=== PATIENT | female | born 1980 | race Caucasian/White ===

== ENCOUNTER 2018-07-20 01:50 | Emergency (ER) | payer BC ==
[~2018-07-20] VITALS: Ht 167.6 cm; Wt 60.0 kg
--- OUTSIDE RECORDS SUMMARY | ~2018-07-20 | XMS ---
Demographics + + + | Address | [address] | | | [place] [address] | + + + | Preferred Language | Unknown | + + + | Marital Status | Unknown | + + + | Islam Affiliation | Unknown | + + + | Race | Unknown | + + + | Ethnic Group | Unknown | + + + Author + + + | Author | [facility] | + + + | Organization | [facility] | + + + | Address | [address] | | | [place] [address] | + + + | Phone | | + + + Care Team Providers + + + + | Care Fresh Foods Cake Decorator Name | Role | Phone | + + + + Unavailable | Unavailable | + + + + PROBLEMS + + + + + + + + | Type | Condition | ICD9-CM | MND50-OH | Onset | Condition | SNOMED | | | | Code | Code | Dates | Status | Code | + + + + + + + + | Problem | Rash | 782.1 | | | Active | 300490514 | + + + + + + + + | Problem | Elevated | 796.2 | | | Active | [id number] | | | blood | | | | | | | | pressure | | | | | | | | reading | | | | | | | | without | | | | | | | | diagnosis | | | | | | | | of | | | | | | | | hypertensi | | | | | | | | on | | | | | | + + + + + + + + | Problem | Tinea | 110.9 | | | Active | 52912907 | + + + + + + + + | Assessment | Screening | | Z13.220 | 27 Apr, | Active | 900286338 | | | cholestero | | | 2017 | | | | | l level | | | | | | + + + + + + + + | Assessment | Encounter | | Z13.89 | Jul, | Active | [id number] | | | for | | | 2016 | | | | | screening | | | | | | | | for other | | | | | | | | disorder | | | | | | + + + + + + + + | Assessment | Anxiety | F41.8 | | 27 Jul, | Active | [id number] | | | with | | | 2016 | | | | | depression | | | | | | + + + + + + + + | Problem | Anxiety | F41.8 | | | Active | 580406810 | | | with | | | | | | | | depression | | | | | | + + + + + + + + | Problem | Lymphadeno | | R59.0 | | Active | 10945913 | | | ibrahima, | | | | | | | | cervical | | | | | | + + + + + + + + | Problem | ARTHRITIS | 716.90 | | | Active | 514482510 | | | UNSPECIFIE | | | | | | | | D | | | | | | + + + + + + + + | Problem | Depressive | 296.00 | | | Active | 92400085 | | | disorder | | | | | | | | NOS | | | | | | + + + + + + + + | Problem | 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 | | | Active | 1399744 | | | l disease | | | | | | + + + + + + + + | Problem | Marijuana | F12.10 | | | Active | 35429551 | | | use | | | | | | + + + + + + + + ALLERGIES + + + + +--------+ | Substance | Reaction | Event Type | Date | Status | + + + + +--------+ | Amoxicillin | SOB/RAPID HEART | Drug Allergy | Jul, | Active | | | RATE | | | | + + + + +--------+ SOCIAL HISTORY No smoking Hx information available PLAN OF CARE + +---------+ | Activity | Details | + +---------+ +---+ | | +---+ + + + | Pending Test | TSH | + + + | Pending Test | Lipid Panel | + + + | | prn,Reason: | + + + VITAL SIGNS + + + + | Height | 65 in | 2016-08-03 | + + + + | Weight | 131.4 lbs | 2016-08-03 | + + + + | BMI | 21.86 kg/m2 | 2016-08-03 | + + + + | Temperature | 98.5 degrees Fahrenheit | 2016-08-03 | + + + + | Heart Rate | 66 /min | 2016-08-03 | + + + + | Blood pressure systolic | 130 mm Hg | 2016-08-03 | + + + + | Blood pressure diastolic | 68 mm Hg | 2016-08-03 | + + + + MEDICATIONS + + + + +--------+ + +--------+ | Medicati | Instruct | Dosage | Frequenc | Start | End Date | Duration | Status | | on | ions | | y | Date | | | | + + + + +--------+ + +--------+ | Benadryl | Orally | 1 tablet | 8h | | | | Active | | Allergy | every 8 | as | | | | | | | 25 MG | hrs | needed | | | | | | + + + + +--------+ + +--------+ | Albutero | Inhalati | 1 puff | 4h | | | | Active | | l | on every | as | | | | | | | Sulfate | 4 hrs | needed | | | | | | | 108 (90 | | | | | | | | | Base) | | | | | | | | | MCG/ACT | | | | | | | | + + + + +--------+ + +--------+ RESULTS No Results PROCEDURES + + + + + | Procedure | Date Ordered | Related Diagnosis | Body Site | + + + + + | Est Level IV | August 03, 2016 | | | | Extended | | | | + + + + + | DSCHRG MED/CURRENT | August 03, 2016 | | | | MED MERGE | | | | + + + + + | CLIN DEPRESSION | August 03, 2016 | | | | SCREEN DOC | | | | + + + + + | DOC MEDS VERIFIED | August 03, 2016 | | | | W/PT OR RE | | | | + + + + + IMMUNIZATIONS No Known Immunizations"
[~2018-07-20 01:50] MED LIST: AMOXICILLIN500 MG PO; AMOXICILLIN875 MG PO; AZITHROMYCIN250 MG PO; BENADRYL ALLERG25 MG PO; IBUPROFEN800 MG PO; PREDNISONE1 MG PO; PREDNISONE20 MG PO; PROVENTIL HFA6.7 GM INH; TYLENOL325 MG PO
--- OUTSIDE RECORDS SUMMARY | 2018-07-20 01:52 | XMS ---
PreManage Notification: GHULAM DENNIS Security Prevocational/Rehabilitation Counselor Events No recent Security Events currently on file CRITERIA MET - Group Notification CARE PROVIDERS CORDELIA RAMIREZ Nurse Practitioner: Family Current PHONE: Unknown CORDELIA PAUL [facility] 04/09/2016-Kristel RAMIREZ PHONE: Unknown Sarika has no Care Guidelines for this patient. Sree VISIT COUNT (12 MO.) Maninder Paul TOTAL 1 NOTE: Visits indicate total known visits. ED/UCC VISIT TRACKING (12 MO.) 07/20/2018 01:50 [facility] [place] TYPE: Emergency COMPLAINT: - DENTAL PAIN INPATIENT VISIT TRACKING (12 MO.) No inpatient visits to display in this time frame [email or web address]
[2018-07-20] MEDS ORDERED: TRAMADOL HCL50 MG PO (02:12)
[2018-07-20] MEDS ORDERED: CEPHALEXIN500 MG PO (02:12)
== END 2018-07-20 02:27 | disposition home or self-care (01) ==
LOC: ED 01:50
DX: K08.89 Other specified disorders of teeth and supporting structures (principal); Z87.891 Personal history of nicotine dependence; Z88.0 Allergy status to penicillin
CPT/HCPCS: 99282

== ENCOUNTER 2018-07-20 13:44 | Emergency (ER) | payer BC ==
[~2018-07-20] VITALS: Ht 167.6 cm; Wt 60.0 kg
[~2018-07-20 13:44] MED LIST changes: +CEPHALEXIN500 MG PO; +TRAMADOL HCL50 MG PO
--- OUTSIDE RECORDS SUMMARY | 2018-07-20 13:46 | XMS ---
PreManage Notification: GHULAM DENNIS Security Deaf/Hard Of Hearing Specialist Events No recent Security Events currently on file CRITERIA MET - Group Notification - [facility] - 2 Visits in 30 Days CARE PROVIDERS CORDELIA RAMIREZ Nurse Practitioner: Family Current PHONE: Unknown CORDELIA PAUL Primary [facility] 04/09/2016-Kristel RAMIREZ PHONE: Unknown Sarika has no Care Guidelines for this patient. Sree VISIT COUNT (12 MO.) 2 [facility] TOTAL 2 NOTE: Visits indicate total known visits. ED/UCC VISIT TRACKING (12 MO.) 07/20/2018 13:44 [facility] [place] TYPE: Emergency COMPLAINT: - MEDICATION REACTION 07/20/2018 01:50 [facility] [place] TYPE: Emergency COMPLAINT: - DENTAL PAIN INPATIENT VISIT TRACKING (12 MO.) No inpatient visits to display in this time frame [id number]
== END 2018-07-20 16:25 | disposition home or self-care (01) ==
LOC: ED 13:44
DX: K08.89 Other specified disorders of teeth and supporting structures (principal); Z76.5 Malingerer [conscious simulation]; F31.9 Bipolar disorder, unspecified; Z87.891 Personal history of nicotine dependence; Z88.0 Allergy status to penicillin; Z79.899 Other long term (current) drug therapy
CPT/HCPCS: 99282

== ENCOUNTER 2018-08-16 12:37 | Emergency (ER) | payer BC ==
[~2018-08-16] VITALS: Ht 167.6 cm; Wt 60.0 kg
--- OUTSIDE RECORDS SUMMARY | 2018-08-16 12:40 | XMS ---
PreManage Notification: GHULAM DENNIS Security Client Service Manager Events No recent Security Events currently on file CRITERIA MET - Group Notification - [facility] - Has Care Guidelines - [facility] - 2 Visits in 30 Days CARE PROVIDERS CORDELIA RAMIREZ Nurse Practitioner: Family Current PHONE: Unknown CORDELIA PAUL Primary Care 04/09/2016-Current ASHLEY PHONE: Unknown Sarika has no Care Guidelines for this patient. Care History Medical/Surgical 07/22/2018 [facility] - Patient is currently established with [facility]. If patient is seen in the ED during business hours. Please contact CHWs at [facility]. Care Recommendation: This patient has had 5 or more Emergency Department visits in the last 12 months.\T\nbsp; Patient requires education on the scope and purpose of the ED as an acute care provider not a Primary Care Provider and should not be utilized for chronic conditions.\T\nbsp; These are guidelines and the provider should exercise clinical judgment when providing care. E.D. VISIT COUNT (12 MO.) 3 [facility] TOTAL 3 NOTE: Visits indicate total known visits. ED/UCC VISIT TRACKING (12 MO.) 08/16/2018 12:37 [facility] [place] TYPE: Emergency COMPLAINT: - ABD PAIN 07/20/2018 13:44 [facility] [place] TYPE: Emergency COMPLAINT: - MEDICATION REACTION DIAGNOSES: - Bipolar disorder, unspecified - Malingerer [conscious simulation] - Other intermediate card tender (current) drug therapy - Allergy status to penicillin - Personal history of nicotine dependence - Other specified disorders of teeth and supporting structures 07/20/2018 01:[address] [facility] [place] TYPE: Emergency COMPLAINT: - DENTAL PAIN DIAGNOSES: - Allergy status to penicillin - Personal history of nicotine dependence - Other specified disorders of teeth and supporting structures INPATIENT VISIT TRACKING (12 MO.) No inpatient visits to display in this time frame [email or web address]
[2018-08-16] MEDS ORDERED: OMEPRAZOLE20 MG PO (12:56)
== END 2018-08-16 15:55 | disposition home or self-care (01) ==
LOC: ED 12:37
DX: R10.11 Right upper quadrant pain (principal); Z88.1 Allergy status to other antibiotic agents; Z88.6 Allergy status to analgesic agent; Z79.899 Other long term (current) drug therapy
CPT/HCPCS: 76705; 80053; 83690; 85025; 96361; 96374; 96375; 99284-25; J1170; J2765; J7030

== ENCOUNTER 2020-01-30 19:10 | Emergency (ER) | payer OTHER ==
[~2020-01-30] VITALS: Ht 167.6 cm; Wt 65.9 kg
[~2020-01-30 19:10] MED LIST changes: +CEFUROXIME250 MG PO; +OMEPRAZOLE20 MG PO; +PYRIDIUM100 MG PO
--- NOTE | 2020-01-31 17:45 | EKG ---
[facility] [address] [facility] [place], [place] [address] Signed Normal sinus rhythm Normal ECG No previous ECGs available Confirmed by SAGAR DYSON MD ([id number]) on 01/31/2020 5:45:39 PM Electronically Signed By: SAGAR DYSON MD 01/31/20 1745 PATIENT NAME: GHULAM DENNIS Electrocardiogram DATE OF : 82 PHYSICIAN: SAGAR DYSON MD REPORT #: [id number] REPORT IS CONFIDENTIAL AND NOT TO BE RELEASED WITHOUT AUTHORIZATION
== END 2020-01-30 21:02 | disposition home or self-care (01) ==
LOC: ED 19:10
DX: R07.89 Other chest pain (principal); R53.81 Other malaise; R11.10 Vomiting, unspecified; R19.7 Diarrhea, unspecified; F17.200 Nicotine dependence, unspecified, uncomplicated; Z88.5 Allergy status to narcotic agent; Z88.0 Allergy status to penicillin
CPT/HCPCS: 71045; 80053; 81001; 83690; 83735; 84484; 84703; 85025; 93005; 93010; 96361; 96374; 99285-25; J2405; J7030

== ENCOUNTER 2020-03-24 13:05 | Emergency (ER) | payer OTHER ==
[~2020-03-24] VITALS: Ht 167.6 cm; Wt 63.7 kg
[2020-03-24] MEDS ORDERED: NORCO 7.5-3251 EACH PO (18:54)
== END 2020-03-24 19:09 | disposition home or self-care (01) ==
LOC: ED 13:05
DX: S62.102A Fracture of unspecified carpal bone, left wrist, initial encounter for closed fracture (principal); F17.200 Nicotine dependence, unspecified, uncomplicated; W18.30XA Fall on same level, unspecified, initial encounter; Z88.5 Allergy status to narcotic agent; Z88.0 Allergy status to penicillin
CPT/HCPCS: 73110; 99283-25; A9270

== ENCOUNTER 2020-08-31 12:21 | Emergency (ER) | payer OTHER ==
[~2020-08-31] VITALS: Ht 167.6 cm; Wt 71.8 kg
[~2020-08-31 12:21] MED LIST changes: +NORCO 7.5-3251 EACH PO
[2020-08-31] MEDS ORDERED: DICLOFENAC SODI75 MG PO (13:00)
== END 2020-08-31 15:01 | disposition home or self-care (01) ==
LOC: ED 12:21
DX: S80.11XA Contusion of right lower leg, initial encounter (principal); X58.XXXA Exposure to other specified factors, initial encounter; F17.200 Nicotine dependence, unspecified, uncomplicated; Z88.5 Allergy status to narcotic agent; Z88.0 Allergy status to penicillin; Z79.899 Other long term (current) drug therapy
CPT/HCPCS: 93971; 99283-25

== ENCOUNTER 2021-05-29 16:27 | Emergency (ER) | payer OTHER ==
[~2021-05-29] VITALS: Ht 167.6 cm; Wt 63.7 kg
[~2021-05-29 16:27] MED LIST changes: +DICLOFENAC SODI75 MG PO
--- NOTE | 2021-05-31 13:43 | EKG ---
[facility] [address] [facility] [place] [address] elevation, consider inferolateral injury or acute infarct ACUTE UT / STEMI Abnormal ECG No previous ECGs available Confirmed by MARCELINO MAXWELL MD ([id number]) on 05/31/2021 1:43:10 PM Electronically Signed By: MARCELINO MAXWELL MD 05/31/21 1343 PATIENT NAME: JEANNIEGHULAMVICK CANODARY Electrocardiogram DATE OF : 82 PHYSICIAN: MARCELINO MAXWELL MD REPORT #: [id number] REPORT IS CONFIDENTIAL AND NOT TO BE RELEASED WITHOUT AUTHORIZATION
--- NOTE | 2021-05-31 13:47 | EKG ---
[facility] [address] [facility] [place], [place] [address] Signed Normal sinus rhythm ACUTE IN ST elevation, consider inferolateral injury or acute infarct Confirmed by MARCELINO MAXWELL MD ([id number]) on 05/31/2021 1:46:42 PM Electronically Signed By: MARCELINO MAXWELL MD 05/31/21 1347 PATIENT NAME: GHULAM DENNIS Electrocardiogram DATE OF : [birth year] PHYSICIAN: MARCELINO MAXWELL MD REPORT #: [id number] REPORT IS CONFIDENTIAL AND NOT TO BE RELEASED WITHOUT AUTHORIZATION
== END 2021-05-29 17:57 | disposition short-term general hospital (02) ==
LOC: ED 16:27
DX: I21.3 ST elevation (STEMI) myocardial infarction of unspecified site (principal); F17.200 Nicotine dependence, unspecified, uncomplicated; Z20.822 Contact with and (suspected) exposure to COVID-19; Z88.5 Allergy status to narcotic agent; Z88.0 Allergy status to penicillin
CPT/HCPCS: 71045; 80053; 80503; 84484; 85025; 85610; 85730; 93005; 93010; 96374; 96375; 99285-25; C9803; J1644; U0003

== ENCOUNTER 2021-08-14 17:28 | Emergency (ER) | payer OTHER ==
[~2021-08-14] VITALS: Ht 167.6 cm; Wt 63.7 kg
[2021-08-14] MEDS ORDERED: FEOSOL325 MG PO (20:05)
--- NOTE | 2021-08-15 14:07 | EKG ---
[facility] [address] [facility] [place], [place] [address] Signed Normal sinus rhythm Normal ECG No previous ECGs available Confirmed by MARCELINO MAXWELL MD ([id number]) on 08/15/2021 2:07:33 PM Electronically Signed By: MARCELINO MAXWELL MD 08/15/21 1407 PATIENT NAME: GHULAM DENNIS Electrocardiogram DATE OF : [birth year] PHYSICIAN: MARCELINO MAXWELL MD REPORT #: [id number] REPORT IS CONFIDENTIAL AND NOT TO BE RELEASED WITHOUT AUTHORIZATION
== END 2021-08-14 20:17 | disposition home or self-care (01) ==
LOC: ED 17:28
DX: R07.89 Other chest pain (principal); F17.200 Nicotine dependence, unspecified, uncomplicated; Z88.8 Allergy status to other drugs, medicaments and biological substances; Z88.0 Allergy status to penicillin
CPT/HCPCS: 36415; 71045; 80053; 83735; 84484; 85025; 85060; 85379; 93005; 93010; 99285-25

== ENCOUNTER 2022-02-18 15:59 | Emergency (ER) | payer OTHER ==
[~2022-02-18] VITALS: Ht 167.6 cm; Wt 63.7 kg
[~2022-02-18 15:59] MED LIST changes: +FEOSOL325 MG PO
[2022-02-18] MEDS ORDERED: CLOPIDOGREL75 MG PO (16:10)
[2022-02-18] MEDS ORDERED: METOPROLOL SUCC25 MG PO (16:11)
[2022-02-18] MEDS ORDERED: ATORVASTATIN CA80 MG PO (16:11)
--- NOTE | 2022-02-19 07:34 | EKG ---
[facility] [address] [facility] [place], [place] [address] Signed Normal sinus rhythm Normal ECG No previous ECGs available Confirmed by SAGAR DYSON MD ([id number]) on 02/19/2022 7:33:58 AM Electronically Signed By: SAGAR DYSON MD 02/19/22 0734 PATIENT NAME: GHULAM DENNIS Electrocardiogram DATE OF : [birth year] PHYSICIAN: SAGAR DYSON MD REPORT #: [id number] REPORT IS CONFIDENTIAL AND NOT TO BE RELEASED WITHOUT AUTHORIZATION
== END 2022-02-18 20:15 | disposition home or self-care (01) ==
LOC: ED 15:59
DX: R07.89 Other chest pain (principal); I25.2 Old myocardial infarction; Z87.440 Personal history of urinary (tract) infections; F17.200 Nicotine dependence, unspecified, uncomplicated; Z88.0 Allergy status to penicillin; Z88.5 Allergy status to narcotic agent; Z79.899 Other long term (current) drug therapy
CPT/HCPCS: 36415; 71045; 80053; 83735; 84484; 85025; 85060; 93005; 93010; 99285-25; A9270

== ENCOUNTER 2022-12-08 17:28 | Emergency (ER) | payer OTHER ==
[~2022-12-08] VITALS: Ht 167.6 cm; Wt 79.4 kg
--- OUTSIDE RECORDS SUMMARY | ~2022-12-08 | XMS | Continuity of Care Document ---
Demographics + + + | Address | [address] | | | [place] [address] | + + + | Preferred Language | Unknown | + + + | Marital Status | | + + + | Alevism Affiliation | Unknown | + + + | Race | White | + + + | Ethnic Group | Not or | + + + Author + + + | Author | [facility] | + + + | Organization | [facility] | + + + | Address | [address] | | | [place] [address] | + + + | Phone | | + + + Care Team Providers + + + + | Care Customer Solutions Coordinator Name | Role | Phone | + + + + Unavailable | Unavailable | + + + + Allergies and Intolerances + + + + + + | date | description | facility | reaction | severity | + + + + + + | (no date) | amoxicillin | [facility] | (no reaction) | (no severity) | + + + + + + | (no date) | tramadol | [facility] | (no reaction) | (no severity) | + + + + + + Encounters No information. Functional Status No information. Immunizations No information. Medications No information. Problems + + + + | date | description | facility | + + + + | 2022-11-27 14:49 | NICOTINE DEPENDENCE, | [facility] | | | UNSPECIFIED, UNCOMPLICATED | | + + + + | 2022-11-27 14:49 | OLD MYOCARDIAL INFARCTION | [facility] | + + + + | 2022-11-27 14:49 | CEREBRAL INFARCTION, | [facility] | | | UNSPECIFIED | | + + + + | 2022-11-27 14:49 | FACIAL WEAKNESS | [facility] | + + + + | 2022-11-27 14:49 | OTHER MOISTURE CONDITIONER OPERATOR (CURRENT) | [facility] | | | DRUG THERAPY | | + + + + | 2022-11-27 14:49 | ALLERGY STATUS TO | [facility] | | | PENICILLIN | | + + + + | 2022-11-27 14:49 | ALLERGY STATUS TO NARCOTIC | [facility] | | | AGENT STATUS | | + + + + | 2022-11-27 14:49 | PRESENCE OF CORONARY | [facility] | | | ANGIOPLASTY IMPLANT AND | | | | GRAFT | | + + + + | 2022-12-02 04:33 | NICOTINE DEPENDENCE, | [facility] | | | UNSPECIFIED, UNCOMPLICATED | | + + + + | 2022-12-02 04:33 | OLD MYOCARDIAL INFARCTION | [facility] | + + + + | 2022-12-02 04:33 | OTHER CHEST PAIN | [facility] | + + + + | 2022-12-02 04:33 | MOISTURE CONDITIONER OPERATOR (CURRENT) USE OF | [facility] | | | ASPIRIN | | + + + + | 2022-12-02 04:33 | OTHER MOISTURE CONDITIONER OPERATOR (CURRENT) | [facility] | | | DRUG THERAPY | | + + + + | 2022-12-02 04:33 | ALLERGY STATUS TO OTHER | [facility] | | | ANTIBIOTIC AGENTS STATUS | | + + + + | 2022-12-02 04:33 | ALLERGY STATUS TO NARCOTIC | [facility] | | | AGENT STATUS | | + + + + Procedures No information. Results/Labs No information. Social History No information. Vital Signs No information."
--- OUTSIDE RECORDS SUMMARY | ~2022-12-08 | XMS | Continuity of Care Document ---
Demographics + + + | Address | [address] | | | [place] [address] | + + + | Preferred Language | Unknown | + + + | Marital Status | | + + + | Methodist Affiliation | Unknown | + + + | Race | White | + + + | Ethnic Group | Not or | + + + Author + + + | Author | [facility] | + + + | Organization | [facility] | + + + | Address | [address] | | | [place] [address] | + + + | Phone | | + + + Care Team Providers + + + + | Care Commercial Credit Analyst Name | Role | Phone | + [...] + + | 2022-11-27 14:49 | OTHER BUILDING SERVICES COORDINATOR (CURRENT) | [facility] | | | DRUG [...] + + + | 2022-12-02 04:33 | BUILDING SERVICES COORDINATOR (CURRENT) USE OF | [facility] | | | ASPIRIN | | + + + + | 2022-12-02 04:33 | OTHER BUILDING SERVICES COORDINATOR (CURRENT) | [facility] | | | DRUG [...]
[~2022-12-08 17:28] MED LIST changes: +ASPIRIN81 MG PO; +ATORVASTATIN CA80 MG PO; +CLOPIDOGREL75 MG PO; +CYCLOBENZAPRINE10 MG PO; +FERROUS GLUCON324 M1 PO; +METOPROLOL SUCC25 MG PO; +ONDANSETRON ODT4 MG PO; +SUMATRIPTAN SUC25 MG PO
--- OUTSIDE RECORDS SUMMARY | 2022-12-08 17:36 | XMS ---
PreManage Notification: GHULAM DENNIS Security Rehabilitation Engineer Events No recent Security Events currently on file CRITERIA MET - [facility] - 2 Visits in 30 Days CARE PROVIDERS -[place]- Dentist: Nitrate Operator [facility] PHONE: [phone] CORDELIA RAMIREZ Nurse Practitioner: Family Current PHONE: Unknown Sarika has no Care Guidelines for this patient. Care History Medical/Surgical 07/22/2018 [facility] - [facility] providing care. E.D. VISIT COUNT (12 MO.) 4 [facility] TOTAL 4 NOTE: Visits indicate total known visits. ED/UCC VISIT TRACKING (12 MO.) 12/08/2022 17:28 [facility] TYPE: Emergency COMPLAINT: - NUMBNESS 12/02/2022 04:33 [facility] TYPE: Emergency COMPLAINT: - CP DIAGNOSES: - Allergy status to narcotic agent - Allergy status to other antibiotic agents - exterminator (current) use of aspirin - Nicotine dependence, unspecified, uncomplicated - Old myocardial infarction - Other chest pain - Other detention (current) drug therapy 11/27/2022 14:49 [facility] TYPE: Emergency COMPLAINT: - STROKE SYMPTOMS DIAGNOSES: - Allergy status to narcotic agent - Allergy status to penicillin - Cerebral infarction, unspecified - Contact with and (suspected) exposure to COVID-19 - Facial weakness - Nicotine dependence, unspecified, uncomplicated - Old myocardial infarction - Other joint terminal attack controller (current) drug therapy - Presence of coronary angioplasty implant and graft 02/18/2022 15:59 [facility] TYPE: Emergency COMPLAINT: - CHEST PAIN DIAGNOSES: - Allergy status to narcotic agent - Allergy status to penicillin - Nicotine dependence, unspecified, uncomplicated - Old myocardial infarction - Other chest pain - Other joint terminal attack controller (current) drug therapy - Personal history of urinary (tract) infections INPATIENT VISIT TRACKING (12 MO.) 11/27/2022 20:10 [facility] TYPE: Medical Surgical COMPLAINT: - Ischemic CVA DIAGNOSES: - Ischemic CVA [id number]
[2022-12-08 18:35] LABS: MCV 64.9 fl (81-99)
[2022-12-08 18:38] LABS: BASOPHILS 0.7 % (0-2); EOSINOPHILS 0.9 % (0-6); HEMATOCRIT 30.3 % (35.0-50.0); HEMOGLOBIN 9.1 g/dL (12.0-18.0); LYMPHOCYTES 11.4 % (24-44); MCH 19.4 (27-36); MCHC 29.9 g/dl (30-36); MONOCYTES 4.6 % (0-12); NEUTROPHILS 82.4 % (39-80); PLATELET COUNT 378 K/uL (140-440); RBC 4.67 M/ul (4.3-5.7); RDW 19.5 (10.5-15.0)
[2022-12-08 18:48] LABS: ALBUMIN 3.9 g/dL (3.4-5.0); ALBUMIN/GLOBULIN RATIO 0.91 (1.1-2.4); ANION GAP 16.9 (7-21); BILIRUBIN, TOTAL 0.4 ng/dL (0.2-1.0); BUN/CREATININE RATIO 8.51 (6.0-28.6); CREATININE, SERUM 0.94 mg/dL (0.55-1.02); POTASSIUM 3.9 mmol/L (3.5-5.1); PROTEIN, TOTAL 8.2 g/dL (6.4-8.2)
[2022-12-08] MEDS ORDERED: PLAVIX75 MG PO (20:05)
[2022-12-08 20:11] VITALS: BP 146/85
== END 2022-12-08 20:12 | disposition home or self-care (01) ==
LOC: ED 17:28
PROVIDERS: Emergency Medicine
DX: R20.2 Paresthesia of skin (principal); R53.1 Weakness; I25.2 Old myocardial infarction; F17.200 Nicotine dependence, unspecified, uncomplicated; Z88.0 Allergy status to penicillin; Z88.5 Allergy status to narcotic agent; Z79.899 Other long term (current) drug therapy; Z79.82 Long term (current) use of aspirin; Z86.73 Personal history of transient ischemic attack (TIA), and cerebral infarction without residual deficits
CPT/HCPCS: 36415; 70450; 71045; 80053; 85025; 85060; 99284-25

== ENCOUNTER 2023-01-25 18:49 | Emergency (ER) | payer OTHER ==
[~2023-01-25] VITALS: Ht 167.6 cm; Wt 79.4 kg
[~2023-01-25 18:49] MED LIST changes: +PLAVIX75 MG PO
--- OUTSIDE RECORDS SUMMARY | 2023-01-25 18:54 | XMS ---
PreManage Notification: GHULAM PAZ Security Wood Getter Events No recent Security Events currently on file CRITERIA MET - [facility] - 2 Visits in 30 Days CARE PROVIDERS -[place]- Dentist: [place] Pilot [facility] PHONE: [phone] CORDELIA RAMIREZ Nurse Practitioner: Family Current PHONE: Unknown Sarika has no Care Guidelines for this patient. Care History Medical/Surgical 07/22/2018 [facility] - Patient is currently established with [facility]. If patient is seen in the ED during business hours. Please contact CHWs at [facility]. Care Recommendation: This patient has [...] providing care. E.D. VISIT COUNT (12 MO.) [address] [facility] TOTAL 6 NOTE: Visits indicate total known visits. ED/UCC VISIT TRACKING (12 MO.) 01/25/2023 18:[address] [facility] [place] TYPE: Emergency COMPLAINT: - BLURRED VISION 01/01/2023 14:31 [facility] TYPE: Emergency COMPLAINT: - CHEST PAIN DIAGNOSES: - Allergy status to analgesic agent - Allergy status to penicillin - superintendent marine oil terminal (current) use of antithrombotics/antiplatelets - superintendent marine oil terminal (current) use of aspirin - Nicotine dependence, unspecified, uncomplicated - Old myocardial infarction - Other chest pain - Other superintendent marine oil terminal (current) drug therapy - Presence of coronary angioplasty implant and graft 12/08/2022 17:28 [facility] TYPE: Emergency COMPLAINT: - NUMBNESS DIAGNOSES: - Allergy status to narcotic agent - Allergy status to penicillin - Anesthesia of skin - superintendent marine oil terminal (current) use of aspirin - Nicotine dependence, unspecified, uncomplicated - Old myocardial infarction - Other superintendent marine oil terminal (current) drug therapy - Other symptoms and signs involving the nervous system - Paresthesia of skin - Personal history of transient ischemic attack (TIA), and cerebral infarction without residual deficits - Weakness 12/02/2022 04:33 [facility] TYPE: Emergency COMPLAINT: - CP DIAGNOSES: - Allergy status to narcotic agent - Allergy status to other antibiotic agents - long-term (current) use of aspirin - Nicotine dependence, unspecified, uncomplicated - Old myocardial infarction - Other chest pain - Other penitentiary (current) drug therapy 11/27/2022 14:49 [facility] TYPE: Emergency COMPLAINT: - STROKE SYMPTOMS DIAGNOSES: - Allergy status to narcotic agent - Allergy status to penicillin - Cerebral infarction, unspecified - Contact with and (suspected) exposure to COVID-19 - Facial weakness - Nicotine dependence, unspecified, uncomplicated - Old myocardial infarction - Other penitentiary (current) drug therapy - Presence of coronary angioplasty implant and graft 02/18/2022 15:59 [facility] TYPE: Emergency COMPLAINT: - CHEST PAIN DIAGNOSES: - Allergy status to narcotic agent - Allergy status to penicillin - Nicotine dependence, unspecified, uncomplicated - Old myocardial infarction - Other chest pain - Other penitentiary (current) drug therapy - Personal history of urinary (tract) infections INPATIENT VISIT TRACKING (12 MO.) 11/27/2022 20:10 [facility] [place] TYPE: Medical Surgical COMPLAINT: - Ischemic CVA DIAGNOSES: - Ischemic CVA [id number]
[2023-01-25 19:24] LABS: BILIRUBIN, URINE NEGATIVE (negative); BLOOD/HGB, URINE NEGATIVE (Negative); KETONE, URINE NEGATIVE (Negative); LEUK ESTERASE, URINE TRACE (negative); NITRITE, URINE NEGATIVE (negative); PH, URINE 5.5 (5-7)
[2023-01-25 19:28] LABS: INR 0.93 (0.80-1.30)
[2023-01-25 19:29] LABS: EOSINOPHILS 5.1 % (0-6); HEMATOCRIT 35.5 % (35.0-50.0); HEMOGLOBIN 10.9 g/dL (12.0-18.0); LYMPHOCYTES 27.9 % (24-44); MCH 23.1 (27-36); MCHC 30.8 g/dl (30-36); MCV 75.1 fl (81-99); PLATELET COUNT 361 K/uL (140-440); RBC 4.73 M/ul (4.3-5.7); RDW 26.8 (10.5-15.0)
[2023-01-25 19:32] LABS: EPITHELIAL CELLS, URINE SQUAMOUS 2+ /lpf (0-1+)
[2023-01-25 19:33] LABS: ALBUMIN 3.5 g/dL (3.4-5.0); ALBUMIN/GLOBULIN RATIO 0.95 (1.1-2.4); ANION GAP 14.5 (7-21); BILIRUBIN, TOTAL 0.1 ng/dL (0.2-1.0); BUN/CREATININE RATIO 8.79 (6.0-28.6); CALCIUM 8.7 mg/dL (8.5-10.1); CREATININE, SERUM 0.91 mg/dL (0.55-1.02); POTASSIUM 3.5 mmol/L (3.5-5.1); PROTEIN, TOTAL 7.2 g/dL (6.4-8.2)
[2023-01-25 19:33] LABS: BACTERIA, URINE RARE /hpf (negative); CASTS, URINE NONE SEEN \\lpf; CRYSTALS, URINE NONE SEEN (0-1+)
[2023-01-25 19:34] LABS: COLLECTION TYPE, URINE CLEAN CATCH; REFLEX CULTURE, URINE No (No)
[2023-01-25 20:08] LABS: AMPHETAMINES, URINE NEGATIVE (NEGATIVE); BARBITURATES, URINE NEGATIVE (NEGATIVE); BENZODIAZEPINE, URINE NEGATIVE (NEGATIVE); BUPRENORPHINE, URINE NEGATIVE (NEGATIVE); CANNABINOID, URINE NEGATIVE (NEGATIVE); COCAINE, URINE NEGATIVE (NEGATIVE); ECSTASY, URINE NEGATIVE (NEGATIVE); FENTANYL, URINE NEGATIVE (NEGATIVE); METHADONE, URINE NEGATIVE (NEGATIVE); OPIATES, URINE NEGATIVE (NEGATIVE); OXYCODONE, URINE NEGATIVE (NEGATIVE); PHENCYCLIDINE, URINE NEGATIVE (NEGATIVE)
[2023-01-25] MEDS ORDERED: IMITREX25 MG PO (20:42)
[2023-01-25 20:59] VITALS: BP 135/74
== END 2023-01-25 21:01 | disposition home or self-care (01) ==
LOC: ED 18:49
PROVIDERS: Family Medicine
DX: G43.909 Migraine, unspecified, not intractable, without status migrainosus (principal); I10 Essential (primary) hypertension; I25.2 Old myocardial infarction; F17.200 Nicotine dependence, unspecified, uncomplicated; Z95.5 Presence of coronary angioplasty implant and graft; Z88.5 Allergy status to narcotic agent; Z88.0 Allergy status to penicillin; Z79.899 Other long term (current) drug therapy; Z79.82 Long term (current) use of aspirin
CPT/HCPCS: 36415; 70450; 80053; 80307; 81001; 85025; 85610; 99284-25

== ENCOUNTER 2023-02-11 07:02 | Emergency (ER) | payer OTHER ==
[~2023-02-11] VITALS: Ht 167.6 cm; Wt 79.8 kg
[~2023-02-11 07:02] MED LIST changes: +IMITREX25 MG PO
--- OUTSIDE RECORDS SUMMARY | 2023-02-11 07:12 | XMS ---
PreManage Notification: GHULAM PAZ Security Flowers Salesperson Events No recent Security Events currently on file CRITERIA MET - 6 ED Visits in 6 Months - [facility] - 2 Visits in 30 Days CARE PROVIDERS -[place]- Dentist: Operations Manager Assistant [facility] PHONE: [phone] CORDELIA RAMIREZ Nurse Practitioner: Family Current PHONE: Unknown Sarika has no Care Guidelines for this patient. Care History Medical/Surgical 07/22/2018 [facility] - Patient is currently established with [facility]. If patient is seen in the ED during business hours. Please contact CHWs at [facility]. Care Recommendation: This patient has had 5 [...] providing care. E.D. VISIT COUNT (12 MO.) [address] [facility] TOTAL 7 NOTE: Visits indicate total known visits. ED/UCC VISIT TRACKING (12 MO.) 02/11/2023 07:06 [facility] [place] TYPE: Emergency COMPLAINT: - CHEST PAIN 01/25/2023 18:49 [facility] TYPE: Emergency COMPLAINT: - BLURRED VISION DIAGNOSES: - Allergy status to narcotic agent - Allergy status to penicillin - Dizziness and giddiness - Essential (primary) hypertension - [facility] (current) use of aspirin - Migraine, unspecified, not intractable, without status migrainosus - Nicotine dependence, unspecified, uncomplicated - Old myocardial infarction - Other long wall shear operator (current) drug therapy - Presence of coronary angioplasty implant and graft 01/01/2023 14:31 [facility] TYPE: Emergency COMPLAINT: - CHEST PAIN DIAGNOSES: - Allergy status to analgesic agent - Allergy status to penicillin - terminal manager (current) use of antithrombotics/antiplatelets - terminal manager (current) use of aspirin - Nicotine dependence, unspecified, uncomplicated - Old myocardial infarction - Other chest pain - Other halfway (current) drug therapy - Presence of coronary angioplasty implant and graft 12/08/2022 17:28 [facility] TYPE: Emergency COMPLAINT: - NUMBNESS DIAGNOSES: - Allergy status to narcotic agent - Allergy status to penicillin - Anesthesia of skin - [facility] (current) use of aspirin - Nicotine dependence, unspecified, uncomplicated - Old myocardial infarction - Other halfway (current) drug therapy - Other symptoms and signs involving the nervous system - Paresthesia of skin - Personal history of transient ischemic attack (TIA), and cerebral infarction without residual deficits - Weakness 12/02/2022 04:33 [facility] TYPE: Emergency COMPLAINT: - CP DIAGNOSES: - Allergy status to narcotic agent - Allergy status to other antibiotic agents - [facility]CI (current) use of aspirin - Nicotine dependence, unspecified, uncomplicated - Old myocardial infarction - Other chest pain - Other long wall shear operator (current) drug therapy 11/27/2022 14:49 [facility] TYPE: Emergency COMPLAINT: - STROKE SYMPTOMS DIAGNOSES: - Allergy status to narcotic agent - Allergy status to penicillin - Cerebral infarction, unspecified - Contact with and (suspected) exposure to COVID-19 - Facial weakness - Nicotine dependence, unspecified, uncomplicated - Old myocardial infarction - Other long wall shear operator (current) drug therapy - Presence of coronary angioplasty implant and graft 02/18/2022 15:59 [facility] TYPE: Emergency COMPLAINT: - CHEST PAIN DIAGNOSES: - Allergy status to narcotic agent - Allergy status to penicillin - Nicotine dependence, unspecified, uncomplicated - Old myocardial infarction - Other chest pain - Other long wall shear operator (current) drug therapy - Personal history of urinary (tract) infections INPATIENT VISIT TRACKING (12 MO.) 11/27/2022 20:10 [facility] TYPE: Medical Surgical COMPLAINT: - Ischemic CVA DIAGNOSES: - Ischemic CVA [email or web address]
[2023-02-11 07:29] LABS: BASOPHILS 1.1 % (0-2); EOSINOPHILS 3.3 % (0-6); HEMATOCRIT 43.4 % (35.0-50.0); HEMOGLOBIN 13.8 g/dL (12.0-18.0); LYMPHOCYTES 22.7 % (24-44); MCH 25.2 (27-36); MCHC 31.8 g/dl (30-36); MCV 79.3 fl (81-99); MONOCYTES 5.4 % (0-12); NEUTROPHILS 67.5 % (39-80); PLATELET COUNT 329 K/uL (140-440); RBC 5.47 M/ul (4.3-5.7); RDW 26.5 (10.5-15.0)
[2023-02-11 07:41] LABS: ALBUMIN/GLOBULIN RATIO 0.93 (1.1-2.4); ALKALINE PHOSPHATASE 123 U/L (46-116); ALT (SGPT) 27 U/L (14-59); ANION GAP 17.5 (7-21); AST (SGOT) 19 U/L (15-37); BILIRUBIN, TOTAL 0.2 ng/dL (0.2-1.0); BUN/CREATININE RATIO 14.28 (6.0-28.6); CARBON DIOXIDE 23 mmol/L (21-32); CHLORIDE 103 mmol/L (98-107); CREATININE, SERUM 0.91 mg/dL (0.55-1.02); GLOMERULAR FILTRATION RATE,EST 81 mL/min (>60); POTASSIUM 4.5 mmol/L (3.5-5.1); PROTEIN, TOTAL 8.3 g/dL (6.4-8.2); UREA NITROGEN 13 mg/dL (7-18)
[2023-02-11 10:00] VITALS: BP 111/67
--- NOTE | 2023-02-11 15:20 | EKG ---
[facility] [address] [place], [place] [address] Signed Normal sinus rhythm Normal ECG No previous ECGs available Confirmed by JULIANN RANDALL MD ([id number]) on 02/11/2023 3:20:35 PM Electronically Signed By: JULIANN RANDALL 02/11/23 1520 PATIENT NAME: GHULAM PAZ Electrocardiogram DATE OF : 82 PHYSICIAN: JULIANN RANDALL REPORT #: [id number] REPORT IS CONFIDENTIAL AND NOT TO BE RELEASED WITHOUT AUTHORIZATION
== END 2023-02-11 10:00 | disposition home or self-care (01) ==
LOC: ED 07:02
PROVIDERS: Emergency Medicine
DX: R07.9 Chest pain, unspecified (principal); K21.9 Gastro-esophageal reflux disease without esophagitis; I25.10 Atherosclerotic heart disease of native coronary artery without angina pectoris; I25.2 Old myocardial infarction; G43.809 Other migraine, not intractable, without status migrainosus; F17.200 Nicotine dependence, unspecified, uncomplicated; Z88.5 Allergy status to narcotic agent; Z88.0 Allergy status to penicillin; Z79.899 Other long term (current) drug therapy; Z79.82 Long term (current) use of aspirin
CPT/HCPCS: 36415; 71045; 80053; 83735; 84484; 85025; 85060; 93005; 93010; A9270

== ENCOUNTER 2023-03-25 07:24 | Emergency (ER) | payer OTHER ==
[~2023-03-25] VITALS: Ht 167.6 cm; Wt 82.6 kg
[2023-03-25] MEDS ORDERED: CYCLOBENZAPRINE10 MG PO (07:43)
[2023-03-25] MEDS ORDERED: BUSPIRONE HCL10 MG PO (07:44)
[2023-03-25] MEDS ORDERED: HYDROCODON-ACE1 EA10 PO (07:44)
[2023-03-25 07:48] LABS: BASOPHILS 0.7 % (0-2); EOSINOPHILS 5.1 % (0-6); HEMATOCRIT 40.3 % (35.0-50.0); HEMOGLOBIN 13.6 g/dL (12.0-18.0); MCH 28.3 (27-36); MCHC 33.7 g/dl (30-36); MCV 84.1 fl (81-99); MONOCYTES 6.5 % (0-12); NEUTROPHILS 56.7 % (39-80); PLATELET COUNT 282 K/uL (140-440); RDW 17.4 (10.5-15.0)
[2023-03-25 08:05] LABS: ALBUMIN 3.4 g/dL (3.4-5.0); ALBUMIN/GLOBULIN RATIO 0.89 (1.1-2.4); ALKALINE PHOSPHATASE 111 U/L (46-116); ALT (SGPT) 29 U/L (14-59); ANION GAP 14.2 (7-21); AST (SGOT) 14 U/L (15-37); BILIRUBIN, TOTAL 0.2 ng/dL (0.2-1.0); BUN/CREATININE RATIO 14.13 (6.0-28.6); CALCIUM 8.3 mg/dL (8.5-10.1); CARBON DIOXIDE 24 mmol/L (21-32); CHLORIDE 105 mmol/L (98-107); CREATININE, SERUM 0.92 mg/dL (0.55-1.02); GLOMERULAR FILTRATION RATE,EST 80 mL/min (>60); MAGNESIUM 1.8 mg/dL (1.8-2.4); POTASSIUM 4.2 mmol/L (3.5-5.1); PROTEIN, TOTAL 7.2 g/dL (6.4-8.2); UREA NITROGEN 13 mg/dL (7-18)
[2023-03-25 09:49] VITALS: BP 121/80
--- NOTE | 2023-03-25 23:20 | EKG ---
[facility] [address] [facility] [place] [address] Signed Normal sinus rhythm Normal ECG When compared with ECG of 11-FEB-2023 07:06, No significant change was found Confirmed by Jam Shea MD () on 03/25/2023 11:20:05 PM Electronically Signed By: JAM SHEA MD 03/25/232319 PATIENT NAME: GHULAM PAZ Electrocardiogram DATE OF : 82 PHYSICIAN: JAM SHEA MD REPORT #: [id number] REPORT IS CONFIDENTIAL AND NOT TO BE RELEASED WITHOUT AUTHORIZATION
== END 2023-03-25 09:51 | disposition home or self-care (01) ==
LOC: ED 07:24
PROVIDERS: Emergency Medicine
DX: K21.9 Gastro-esophageal reflux disease without esophagitis (principal); I25.10 Atherosclerotic heart disease of native coronary artery without angina pectoris; I25.2 Old myocardial infarction; F17.200 Nicotine dependence, unspecified, uncomplicated; Z95.5 Presence of coronary angioplasty implant and graft; Z88.5 Allergy status to narcotic agent; Z79.899 Other long term (current) drug therapy; Z79.82 Long term (current) use of aspirin
CPT/HCPCS: 36415; 71045; 80053; 83690; 83735; 84484; 84703; 85025; 85060; 93005; 93010

== ENCOUNTER 2023-04-11 20:40 | Emergency (ER) | payer OTHER ==
[~2023-04-11] VITALS: Ht 167.6 cm; Wt 86.9 kg
[~2023-04-11 20:40] MED LIST changes: +BUSPIRONE HCL10 MG PO; +HYDROCODON-ACE1 EA10 PO
[2023-04-11] MEDS ORDERED: ATORVASTATIN CA80 MG PO (20:58)
[2023-04-11] MEDS ORDERED: OMEPRAZOLE20 MG PO (20:58)
[2023-04-11 21:00] LABS: BASOPHILS 1.2 % (0-2); EOSINOPHILS 4.9 % (0-6); HEMATOCRIT 38.2 % (35.0-50.0); LYMPHOCYTES 33.8 % (24-44); MCH 28.9 (27-36); MCHC 33.9 g/dl (30-36); MONOCYTES 7.6 % (0-12); NEUTROPHILS 52.5 % (39-80); PLATELET COUNT 293 K/uL (140-440); RBC 4.49 M/ul (4.3-5.7); RDW 14.8 (10.5-15.0)
[2023-04-11 21:21] LABS: ALBUMIN 3.2 g/dL (3.4-5.0); ALBUMIN/GLOBULIN RATIO 0.76 (1.1-2.4); ALKALINE PHOSPHATASE 122 U/L (46-116); ALT (SGPT) 57 U/L (14-59); ANION GAP 13.6 (7-21); AST (SGOT) 38 U/L (15-37); BILIRUBIN, TOTAL 0.1 ng/dL (0.2-1.0); BUN/CREATININE RATIO 12.63 (6.0-28.6); CALCIUM 8.8 mg/dL (8.5-10.1); CARBON DIOXIDE 26 mmol/L (21-32); CHLORIDE 103 mmol/L (98-107); CREATININE, SERUM 0.95 mg/dL (0.55-1.02); GLOMERULAR FILTRATION RATE,EST 77 mL/min (>60); MAGNESIUM 1.8 mg/dL (1.8-2.4); POTASSIUM 3.6 mmol/L (3.5-5.1); PROTEIN, TOTAL 7.4 g/dL (6.4-8.2); UREA NITROGEN 12 mg/dL (7-18)
[2023-04-11 23:31] VITALS: BP 127/76
--- NOTE | 2023-04-12 14:24 | EKG ---
[facility] [address] [facility] [place], [place] [address] Signed Normal sinus rhythm Normal ECG When compared with ECG of 25-MAR-2023 07:27, No significant change was found Confirmed by JULIANN RANDALL MD ([id number]) on 04/12/2023 2:23:44 PM Electronically Signed By: JULIANN RANDALL 04/12/23 1424 PATIENT NAME: GHULAM PAZ Electrocardiogram DATE OF : [birth year] PHYSICIAN: JULIANN RANDALL REPORT #: [id number] REPORT IS CONFIDENTIAL AND NOT TO BE RELEASED WITHOUT AUTHORIZATION
== END 2023-04-11 23:31 | disposition home or self-care (01) ==
LOC: ED 20:40
PROVIDERS: Emergency Medicine
DX: R07.89 Other chest pain (principal); I25.2 Old myocardial infarction; I10 Essential (primary) hypertension; K21.9 Gastro-esophageal reflux disease without esophagitis; Z88.0 Allergy status to penicillin; Z88.5 Allergy status to narcotic agent; Z79.82 Long term (current) use of aspirin; Z79.899 Other long term (current) drug therapy; Z86.73 Personal history of transient ischemic attack (TIA), and cerebral infarction without residual deficits
CPT/HCPCS: 36415; 71045; 80053; 83735; 84484; 85025; 85379; 93005; 93010; A9270; J1885

== ENCOUNTER 2023-08-23 09:29 | Emergency (ER) | payer OTHER ==
[~2023-08-23] VITALS: Ht 167.6 cm; Wt 83.1 kg
[2023-08-23 10:07] VITALS: BP 128/78
== END 2023-08-23 10:11 | disposition home or self-care (01) ==
LOC: ED 09:29
DX: M72.2 Plantar fascial fibromatosis (principal); I25.2 Old myocardial infarction; I10 Essential (primary) hypertension; K21.9 Gastro-esophageal reflux disease without esophagitis; F17.200 Nicotine dependence, unspecified, uncomplicated; Z95.5 Presence of coronary angioplasty implant and graft; Z88.0 Allergy status to penicillin; Z88.5 Allergy status to narcotic agent; Z79.899 Other long term (current) drug therapy; Z79.82 Long term (current) use of aspirin; Z86.73 Personal history of transient ischemic attack (TIA), and cerebral infarction without residual deficits
CPT/HCPCS: 99283

== ENCOUNTER 2023-08-26 09:14 | Emergency (ER) | payer OTHER ==
[~2023-08-26] VITALS: Ht 167.6 cm; Wt 90.6 kg
[2023-08-26] MEDS ORDERED: LOSARTAN POTASS25 MG PO (09:28)
[2023-08-26] MEDS ORDERED: NITROGLYCERIN 0.4 MG SUBL SL PRN (09:30)
[2023-08-26] MEDS ORDERED: ASPIRIN 81 MG CHEW PO ONE (09:30)
[2023-08-26 09:31] LABS: BASOPHILS 1.9 % (0-2); EOSINOPHILS 2.7 % (0-6); HEMATOCRIT 45.6 % (35.0-50.0); HEMOGLOBIN 15.3 g/dL (12.0-18.0); LYMPHOCYTES 16.6 % (24-44); MCH 29.9 (27-36); MCHC 33.6 g/dl (30-36); MCV 89.1 fl (81-99); MONOCYTES 4.8 % (0-12); PLATELET COUNT 308 K/uL (140-440); RBC 5.11 M/ul (4.3-5.7)
[2023-08-26 09:47] LABS: ALBUMIN 3.9 g/dL (3.4-5.0); ALBUMIN/GLOBULIN RATIO 0.98 (1.1-2.4); ANION GAP 16.5 (7-21); BILIRUBIN, TOTAL 0.9 ng/dL (0.2-1.0); BUN/CREATININE RATIO 7.14 (6.0-28.6); CALCIUM 8.8 mg/dL (8.5-10.1); CREATININE, SERUM 0.84 mg/dL (0.55-1.02); MAGNESIUM 2.1 mg/dL (1.8-2.4); POTASSIUM 3.5 mmol/L (3.5-5.1); PROTEIN, TOTAL 7.9 g/dL (6.4-8.2)
[2023-08-26] MEDS ORDERED: ACETAMINOPHEN 500 MG TAB PO ONE (10:00)
[2023-08-26] MEDS ORDERED: NITROGLYCERIN0.4 MG SL (11:36)
[2023-08-26 11:40] VITALS: BP 123/73
--- NOTE | 2023-08-26 12:52 | EKG ---
[facility] [address] [facility] [place], [place] [address] Signed Normal sinus rhythm Normal ECG When compared with ECG of 11-APR-2023 20:48, No significant change was found Confirmed by JULIANN RANDALL MD ([id number]) on 08/26/2023 12:52:52 PM Electronically Signed By: JULIANN RANDALL 08/26/23 1252 PATIENT NAME: GHULAM PAZ Electrocardiogram DATE OF : [birth year] PHYSICIAN: JULIANN RANDALL REPORT #: [id number] REPORT IS CONFIDENTIAL AND NOT TO BE RELEASED WITHOUT AUTHORIZATION
== END 2023-08-26 11:47 | disposition home or self-care (01) ==
LOC: ED 09:14
PROVIDERS: Emergency Medicine
DX: R07.89 Other chest pain (principal); I25.2 Old myocardial infarction; I10 Essential (primary) hypertension; K21.9 Gastro-esophageal reflux disease without esophagitis; F17.200 Nicotine dependence, unspecified, uncomplicated; Z88.8 Allergy status to other drugs, medicaments and biological substances; Z88.0 Allergy status to penicillin; Z79.899 Other long term (current) drug therapy; Z79.82 Long term (current) use of aspirin
CPT/HCPCS: 36415; 71045; 80053; 83735; 84484; 85025; 93005; 93010; 99285-25; A9270

== ENCOUNTER 2023-10-26 11:55 | Emergency (ER) | payer OTHER ==
[~2023-10-26 11:55] MED LIST changes: +CARAFATE1 GM PO; +LOSARTAN POTASS25 MG PO; +MACROBID 100 M100 MG PO; +NAPROSYN500 MG PO; +NITROGLYCERIN0.4 MG SL
[2023-10-26 12:59] LABS: BASOPHILS 1.3 % (0-2); EOSINOPHILS 3.3 % (0-6); HEMATOCRIT 41.9 % (35.0-50.0); HEMOGLOBIN 14.2 g/dL (12.0-18.0); LYMPHOCYTES 31.2 % (24-44); MCH 30.5 (27-36); MCHC 33.8 g/dl (30-36); MCV 90.1 fl (81-99); MONOCYTES 5.3 % (0-12); NEUTROPHILS 58.9 % (39-80); PLATELET COUNT 332 K/uL (140-440); RBC 4.65 M/ul (4.3-5.7); RDW 13.7 (10.5-15.0)
[2023-10-26] MEDS ORDERED: NITROGLYCERIN 0.4 MG SUBL SL PRN (13:00)
[2023-10-26] MEDS ORDERED: ASPIRIN 81 MG CHEW PO ONE (13:00)
[2023-10-26 13:15] LABS: ALBUMIN 3.9 g/dL (3.4-5.0); ALBUMIN/GLOBULIN RATIO 0.95 (1.1-2.4); ANION GAP 15.6 (7-21); BILIRUBIN, TOTAL 1.2 ng/dL (0.2-1.0); BUN/CREATININE RATIO 9.7 (6.0-28.6); CALCIUM 8.8 mg/dL (8.5-10.1); CREATININE, SERUM 1.03 mg/dL (0.55-1.02); MAGNESIUM 1.6 mg/dL (1.8-2.4); POTASSIUM 3.6 mmol/L (3.5-5.1)
[2023-10-26] MEDS ORDERED: TYLENOL325 MG PO (14:04)
[2023-10-26 16:11] VITALS: BP 124/72
--- NOTE | 2023-10-29 11:30 | EKG ---
[facility] [address] [facility] [place], [place] [address] Signed Normal sinus rhythm Minimal voltage criteria for LVH, may be normal variant ( R in aVL ) Borderline ECG No previous ECGs available Confirmed by JULIANN RANDALL MD ([id number]) on 10/29/2023 11:29:55 AM Electronically Signed By: JULIANN RANDALL 10/29/23 1130 PATIENT NAME: GHULAM PAZ Electrocardiogram DATE OF : [birth year] PHYSICIAN: JULIANN RANDALL REPORT #: [id number] REPORT IS CONFIDENTIAL AND NOT TO BE RELEASED WITHOUT AUTHORIZATION
== END 2023-10-26 16:11 | disposition home or self-care (01) ==
LOC: ED 11:55
PROVIDERS: Emergency Medicine
DX: R07.89 Other chest pain (principal); K76.0 Fatty (change of) liver, not elsewhere classified; I10 Essential (primary) hypertension; I25.2 Old myocardial infarction; F31.9 Bipolar disorder, unspecified; F17.200 Nicotine dependence, unspecified, uncomplicated; Z95.5 Presence of coronary angioplasty implant and graft; Z88.5 Allergy status to narcotic agent; Z88.0 Allergy status to penicillin; Z79.82 Long term (current) use of aspirin; Z79.899 Other long term (current) drug therapy
CPT/HCPCS: 36415; 71045; 76705; 80053; 83690; 83735; 84484; 85025; 93005; 93010; 99285-25; A9270

== ENCOUNTER 2023-12-02 10:49 | Emergency (ER) | payer OTHER ==
[~2023-12-02] VITALS: Ht 167.6 cm; Wt 90.0 kg
[~2023-12-02 10:49] MED LIST changes: +PYRIDIUM200 MG PO
[2023-12-02] MEDS ORDERED: NITROGLYCERIN 0.4 MG SUBL SL PRN (11:00)
[2023-12-02] MEDS ORDERED: ASPIRIN 81 MG CHEW PO ONE (11:00)
[2023-12-02 11:07] LABS: BASOPHILS 0.6 % (0-2); EOSINOPHILS 3.7 % (0-6); HEMATOCRIT 41.2 % (35.0-50.0); LYMPHOCYTES 28.8 % (24-44); MCH 30.7 (27-36); MCHC 34.1 g/dl (30-36); MCV 90.2 fl (81-99); MONOCYTES 5.7 % (0-12); NEUTROPHILS 61.2 % (39-80); PLATELET COUNT 270 K/uL (140-440); RBC 4.57 M/ul (4.3-5.7); RDW 13.2 (10.5-15.0)
[2023-12-02 11:16] LABS: PARTIAL THROMBOPLASTIN TIME 25.8 Sec (22.9-41.3)
[2023-12-02 11:17] LABS: INR 0.98 (0.80-1.30); PROTIME 12.3 Sec (11.2-14.2)
[2023-12-02 11:27] LABS: ALBUMIN 3.4 g/dL (3.4-5.0); ALBUMIN/GLOBULIN RATIO 0.92 (1.1-2.4); ANION GAP 11.7 (7-21); BILIRUBIN, TOTAL 0.5 ng/dL (0.2-1.0); BUN/CREATININE RATIO 12.64 (6.0-28.6); CALCIUM 8.6 mg/dL (8.5-10.1); CREATININE, SERUM 0.87 mg/dL (0.55-1.02); MAGNESIUM 1.8 mg/dL (1.8-2.4); POTASSIUM 3.7 mmol/L (3.5-5.1); PROTEIN, TOTAL 7.1 g/dL (6.4-8.2)
--- NOTE | 2023-12-02 12:42 | EKG ---
[facility] [address] [facility] [place], [place] [address] Signed Normal sinus rhythm Normal ECG When compared with ECG of 26-OCT-2023 11:55, No significant change was found Confirmed by Kenna iMguel MD ([id number]) on 12/02/2023 12:42:33 PM Electronically Signed By: KENNA MIGUEL MD 12/02/23 1242 PATIENT NAME: GHULAM PAZ Electrocardiogram DATE OF : [birth year] PHYSICIAN: KENNA MIGUEL MD REPORT #: [id number] REPORT IS CONFIDENTIAL AND NOT TO BE RELEASED WITHOUT AUTHORIZATION
[2023-12-02 13:50] VITALS: BP 115/67
== END 2023-12-02 13:50 | disposition home or self-care (01) ==
LOC: ED 10:49
PROVIDERS: Emergency Medicine
DX: R07.9 Chest pain, unspecified (principal); I10 Essential (primary) hypertension; I25.2 Old myocardial infarction; K21.9 Gastro-esophageal reflux disease without esophagitis; F31.9 Bipolar disorder, unspecified; F17.200 Nicotine dependence, unspecified, uncomplicated; Z88.5 Allergy status to narcotic agent; Z88.0 Allergy status to penicillin; Z79.82 Long term (current) use of aspirin; Z79.899 Other long term (current) drug therapy
CPT/HCPCS: 36415; 71045; 80053; 83735; 83880; 84484; 85025; 85610; 85730; 93005; 93010; 99285-25; A9270

== ENCOUNTER 2023-12-12 19:51 | Emergency (ER) | payer OTHER ==
[~2023-12-12] VITALS: Ht 167.6 cm; Wt 92.0 kg
[2023-12-12] MEDS ORDERED: BACTRIM DS TAB1 EACH PO (21:09)
[2023-12-12] MEDS ORDERED: TRIMETHOPRIM/SULFAMETHOXAZOLE 1 EA HOME.PACK PO ONE (21:15)
[2023-12-12] MEDS ORDERED: HYDROCODONE BIT/ACETAMINOPHEN 5/325 MG 1 TAB HOME.PACK PO ONE (21:15)
[2023-12-12 21:34] VITALS: BP 124/68
== END 2023-12-12 21:30 | disposition home or self-care (01) ==
LOC: ED 19:51
DX: L08.9 Local infection of the skin and subcutaneous tissue, unspecified (principal); I25.2 Old myocardial infarction; I10 Essential (primary) hypertension; K21.9 Gastro-esophageal reflux disease without esophagitis; F17.200 Nicotine dependence, unspecified, uncomplicated; Z86.73 Personal history of transient ischemic attack (TIA), and cerebral infarction without residual deficits; Z95.5 Presence of coronary angioplasty implant and graft; Z88.5 Allergy status to narcotic agent; Z88.0 Allergy status to penicillin; Z79.899 Other long term (current) drug therapy; Z79.82 Long term (current) use of aspirin
CPT/HCPCS: 99282; A9270

== ENCOUNTER 2023-12-31 00:11 | Emergency (ER) | payer OTHER ==
[~2023-12-31] VITALS: Ht 167.6 cm; Wt 94.0 kg
[~2023-12-31 00:11] MED LIST changes: +BACTRIM DS TAB1 EACH PO
[2023-12-31] MEDS ORDERED: ALBUTEROL/IPRATROPIUM 3 ML NEB INH ONE (00:15)
[2023-12-31] MEDS ORDERED: methylPREDNISolone SOD SUCC 125 MG/2 ML VIAL IV ONE (00:15)
[2023-12-31 00:27] LABS: BASOPHILS 0.7 % (0-2); EOSINOPHILS 5.4 % (0-6); HEMATOCRIT 41.2 % (35.0-50.0); HEMOGLOBIN 14.1 g/dL (12.0-18.0); LYMPHOCYTES 37.2 % (24-44); MCH 30.7 (27-36); MCHC 34.2 g/dl (30-36); MCV 89.7 fl (81-99); MONOCYTES 7.3 % (0-12); NEUTROPHILS 49.4 % (39-80); PLATELET COUNT 281 K/uL (140-440); RBC 4.59 M/ul (4.3-5.7); RDW 13.3 (10.5-15.0)
[2023-12-31] MEDS ORDERED: FAMOTIDINE 20 MG/ 2 ML VIAL IV ONE (00:30)
[2023-12-31] MEDS ORDERED: NITROGLYCERIN 0.4 MG SUBL SL PRN (00:30)
[2023-12-31] MEDS ORDERED: ASPIRIN 81 MG CHEW PO ONE (00:30)
[2023-12-31 00:49] LABS: ALBUMIN 3.4 g/dL (3.4-5.0); ALBUMIN/GLOBULIN RATIO 0.87 (1.1-2.4); ANION GAP 10.8 (7-21); BILIRUBIN, TOTAL 0.4 ng/dL (0.2-1.0); BUN/CREATININE RATIO 8.79 (6.0-28.6); CALCIUM 9.5 mg/dL (8.5-10.1); CREATININE, SERUM 0.91 mg/dL (0.55-1.02); POTASSIUM 3.8 mmol/L (3.5-5.1); PROTEIN, TOTAL 7.3 g/dL (6.4-8.2)
[2023-12-31 01:09] LABS: INFLUENZA B NAA NEGATIVE (NEGATIVE); RESPIRATORY SYNCYTIAL VIR NAA NEGATIVE (NEGATIVE)
[2023-12-31] MEDS ORDERED: PREDNISONE20 MG PO (01:23)
[2023-12-31] MEDS ORDERED: ZITHROMAX250 MG PO (01:23)
[2023-12-31] MEDS ORDERED: AZITHROMYCIN 250 MG TAB PO ONE (01:30)
[2023-12-31 01:37] VITALS: BP 125/69
--- NOTE | 2023-12-31 11:26 | EKG ---
[facility] [address] [facility] [place] [address] Signed Normal sinus rhythm Minimal voltage criteria for LVH, may be normal variant ( R in aVL ) Borderline ECG Confirmed by Kenna Miguel MD ([id number]) on 12/31/2023 11:26:28 AM Electronically Signed By: KENNA MIGUEL MD 12/31/23 1126 PATIENT NAME: GHULAM RIVERA Electrocardiogram DATE OF : [birth year] PHYSICIAN: KENNA IMGUEL MD REPORT #: [id number] REPORT IS CONFIDENTIAL AND NOT TO BE RELEASED WITHOUT AUTHORIZATION
== END 2023-12-31 01:37 | disposition home or self-care (01) ==
LOC: ED 00:11
PROVIDERS: Internal Medicine
DX: J45.901 Unspecified asthma with (acute) exacerbation (principal); J18.9 Pneumonia, unspecified organism; J44.9 Chronic obstructive pulmonary disease, unspecified; I25.10 Atherosclerotic heart disease of native coronary artery without angina pectoris; I25.2 Old myocardial infarction; I10 Essential (primary) hypertension; K21.9 Gastro-esophageal reflux disease without esophagitis; E78.5 Hyperlipidemia, unspecified; F17.200 Nicotine dependence, unspecified, uncomplicated; Z86.73 Personal history of transient ischemic attack (TIA), and cerebral infarction without residual deficits; Z88.0 Allergy status to penicillin; Z88.5 Allergy status to narcotic agent; Z79.899 Other long term (current) drug therapy; Z79.82 Long term (current) use of aspirin; Z11.52 Encounter for screening for COVID-19
CPT/HCPCS: 36415; 71045; 80053; 83880; 84484; 85025; 85379; 87502; 93005; 93010; 94640; 96374; 96375; 99285-25; A9270; J2919; U0002

== ENCOUNTER 2024-01-26 14:24 | Emergency (ER) | payer OTHER ==
[~2024-01-26] VITALS: Ht 167.6 cm; Wt 95.8 kg
[~2024-01-26 14:24] MED LIST changes: +ZITHROMAX250 MG PO
[2024-01-26] MEDS ORDERED: LIDOCAINE HCL 4% 1 EACH PATCH TD ONE (15:00)
[2024-01-26] MEDS ORDERED: KETOROLAC TROMETHAMINE 60 MG/2 ML VIAL IM ONE (15:00)
[2024-01-26] MEDS ORDERED: LIDODERM1 EACH TOP (17:09)
[2024-01-26] MEDS ORDERED: KETOROLAC TROME10 MG PO (17:09)
[2024-01-26 17:17] VITALS: BP 134/77
[2024-01-26] MEDS ORDERED: LIDOCAINE PATCH REMOVAL 1 EA TD SCH (21:00)
== END 2024-01-26 17:20 | disposition home or self-care (01) ==
LOC: ED 14:24
DX: M25.551 Pain in right hip (principal); I10 Essential (primary) hypertension; I25.2 Old myocardial infarction; K21.9 Gastro-esophageal reflux disease without esophagitis; F31.9 Bipolar disorder, unspecified; F17.200 Nicotine dependence, unspecified, uncomplicated; Z88.5 Allergy status to narcotic agent; Z88.0 Allergy status to penicillin; Z79.899 Other long term (current) drug therapy; Z79.82 Long term (current) use of aspirin
CPT/HCPCS: 73502; 93971; 96372; 99284-25; A9270; J1885

== ENCOUNTER 2024-02-05 12:28 | Emergency (ER) | payer OTHER ==
[~2024-02-05] VITALS: Ht 167.6 cm; Wt 94.4 kg
[~2024-02-05 12:28] MED LIST changes: +KETOROLAC TROME10 MG PO; +LIDODERM1 EACH TOP
[2024-02-05 12:43] LABS: BASOPHILS 0.7 % (0-2); EOSINOPHILS 4.8 % (0-6); HEMOGLOBIN 14.9 g/dL (12.0-18.0); MCH 31.5 (27-36); MCHC 35.4 g/dl (30-36); MCV 88.9 fl (81-99); NEUTROPHILS 52.5 % (39-80); PLATELET COUNT 276 K/uL (140-440); RBC 4.73 M/ul (4.3-5.7); RDW 12.9 (10.5-15.0)
[2024-02-05] MEDS ORDERED: IBLOOD GLUCOSE TEST STRIP 1 EA TEST XX ONE (12:45)
[2024-02-05 12:55] LABS: INR 0.94 (0.80-1.30); PROTIME 12.2 Sec (11.2-14.2)
[2024-02-05 12:57] LABS: PARTIAL THROMBOPLASTIN TIME 25.1 Sec (22.9-41.3)
[2024-02-05 13:02] LABS: ALBUMIN 3.2 g/dL (3.4-5.0); ALBUMIN/GLOBULIN RATIO 0.82 (1.1-2.4); ALKALINE PHOSPHATASE 126 U/L (46-116); ALT (SGPT) 29 U/L (14-59); ANION GAP 11.6 (7-21); AST (SGOT) 17 U/L (15-37); BILIRUBIN, TOTAL 0.6 ng/dL (0.2-1.0); BUN/CREATININE RATIO 9.87 (6.0-28.6); CALCIUM 8.4 mg/dL (8.5-10.1); CARBON DIOXIDE 26 mmol/L (21-32); CHLORIDE 107 mmol/L (98-107); CREATININE, SERUM 0.81 mg/dL (0.55-1.02); GLOMERULAR FILTRATION RATE,EST 92 mL/min (>60); POTASSIUM 3.6 mmol/L (3.5-5.1); PROTEIN, TOTAL 7.1 g/dL (6.4-8.2); UREA NITROGEN 8 mg/dL (7-18)
[2024-02-05] MEDS ORDERED: KETOROLAC TROMETHAMINE 30 MG/ML VIAL IV ONE (13:15)
[2024-02-05] MEDS ORDERED: ASPIRIN 81 MG CHEW PO ONE (13:15)
[2024-02-05] MEDS ORDERED: METOCLOPRAMIDE HCL 10 MG/2 ML SDV IV ONE (13:15)
[2024-02-05] MEDS ORDERED: MAGNESIUM SULFATE 2 GM/50 ML BAG IV ONE (13:15)
[2024-02-05] MEDS ORDERED: ondansetron HCL 4 MG/2 ML VIAL IV ONE (13:15)
[2024-02-05 16:33] LABS: AMPHETAMINES, URINE NEGATIVE (NEGATIVE); BARBITURATES, URINE NEGATIVE (NEGATIVE); BENZODIAZEPINE, URINE NEGATIVE (NEGATIVE); BUPRENORPHINE, URINE NEGATIVE (NEGATIVE); CANNABINOID, URINE NEGATIVE (NEGATIVE); COCAINE, URINE NEGATIVE (NEGATIVE); ECSTASY, URINE NEGATIVE (NEGATIVE); FENTANYL, URINE NEGATIVE (NEGATIVE); METHADONE, URINE NEGATIVE (NEGATIVE); OPIATES, URINE NEGATIVE (NEGATIVE); OXYCODONE, URINE NEGATIVE (NEGATIVE); PHENCYCLIDINE, URINE NEGATIVE (NEGATIVE)
[2024-02-05 17:21] VITALS: BP 136/75
--- NOTE | 2024-02-07 14:39 | EKG ---
[facility] [address] [facility] [place] [address] Signed Normal sinus rhythm Normal ECG When compared with ECG of 31-DEC-2023 00:18, No significant change was found Confirmed by Jarod Jesus MD ([id number]) on 02/07/2024 2:39:42 PM Electronically Signed By: JAROD JESUS DO 02/07/24 1439 PATIENT NAME: IRVINGGEEGHULAM Electrocardiogram DATE OF : [birth year] PHYSICIAN: JAROD JESUS DO REPORT #: [id number] REPORT IS CONFIDENTIAL AND NOT TO BE RELEASED WITHOUT AUTHORIZATION
== END 2024-02-05 17:21 | disposition home or self-care (01) ==
LOC: ED 12:28
PROVIDERS: Emergency Medicine
DX: G43.809 Other migraine, not intractable, without status migrainosus (principal); I25.2 Old myocardial infarction; I10 Essential (primary) hypertension; F17.200 Nicotine dependence, unspecified, uncomplicated; Z86.73 Personal history of transient ischemic attack (TIA), and cerebral infarction without residual deficits; Z88.5 Allergy status to narcotic agent; Z88.0 Allergy status to penicillin; Z79.82 Long term (current) use of aspirin; Z79.899 Other long term (current) drug therapy
CPT/HCPCS: 36415; 70450; 70496; 70498; 70551; 71045; 80053; 80307; 84484; 84703; 85025; 85610; 85651; 85730; 86140; 93005; 93010; 99285-25; A9270; J1885; J2405; J2765; J3475; Q9967

== ENCOUNTER 2024-02-21 21:44 | Emergency (ER) | payer OTHER ==
[~2024-02-21] VITALS: Ht 167.6 cm; Wt 93.0 kg
[2024-02-21 22:00] LABS: BASOPHILS 0.6 % (0-2); EOSINOPHILS 4.8 % (0-6); HEMATOCRIT 44.8 % (35.0-50.0); HEMOGLOBIN 15.6 g/dL (12.0-18.0); LYMPHOCYTES 40.1 % (24-44); MCH 31.3 (27-36); MCHC 34.9 g/dl (30-36); MCV 89.7 fl (81-99); MONOCYTES 6.7 % (0-12); NEUTROPHILS 47.8 % (39-80); PLATELET COUNT 304 K/uL (140-440); RBC 4.99 M/ul (4.3-5.7); RDW 12.7 (10.5-15.0)
[2024-02-21] MEDS ORDERED: MORPHINE SULFATE 4 MG/ML VIAL IV ONE (22:00)
[2024-02-21] MEDS ORDERED: NITROGLYCERIN PACKET TOP ONE (22:00)
[2024-02-21] MEDS ORDERED: ASPIRIN 325 MG TAB PO ONE (22:00)
[2024-02-21 22:09] LABS: INR 0.93 (0.80-1.30); PROTIME 11.8 Sec (11.2-14.2)
[2024-02-21 22:23] LABS: ALBUMIN 3.8 g/dL (3.4-5.0); ALBUMIN/GLOBULIN RATIO 0.9 (1.1-2.4); ANION GAP 13.6 (7-21); BILIRUBIN, TOTAL 0.4 ng/dL (0.2-1.0); BUN/CREATININE RATIO 8.69 (6.0-28.6); CALCIUM 8.9 mg/dL (8.5-10.1); CREATININE, SERUM 0.92 mg/dL (0.55-1.02); MAGNESIUM 1.9 mg/dL (1.8-2.4); POTASSIUM 3.6 mmol/L (3.5-5.1)
[2024-02-21] MEDS ORDERED: CYCLOBENZAPRINE HCL 10 MG HOME.PACK PO ONE (23:30)
[2024-02-21 23:49] VITALS: BP 131/76
--- NOTE | 2024-02-24 21:00 | EKG ---
[facility] [address] [facility] [place] [address] Signed Normal sinus rhythm Normal ECG When compared with ECG of 05-FEB-2024 13:43, No significant change was found Confirmed by Jarod Jesus MD ([id number]) on 02/24/2024 9:00:25 PM Electronically Signed By: JAROD JESUS DO 02/24/24 2100 PATIENT NAME: IRVINGPOLO FLYNNVICK FOOTE Electrocardiogram DATE OF : 82 PHYSICIAN: JAROD JESUS DO REPORT #: [id number] REPORT IS CONFIDENTIAL AND NOT TO BE RELEASED WITHOUT AUTHORIZATION
== END 2024-02-21 23:49 | disposition home or self-care (01) ==
LOC: ED 21:44
PROVIDERS: Family Medicine
DX: R07.89 Other chest pain (principal); I25.2 Old myocardial infarction; I10 Essential (primary) hypertension; K21.9 Gastro-esophageal reflux disease without esophagitis; F17.200 Nicotine dependence, unspecified, uncomplicated; Z95.5 Presence of coronary angioplasty implant and graft; Z86.73 Personal history of transient ischemic attack (TIA), and cerebral infarction without residual deficits; Z88.5 Allergy status to narcotic agent; Z88.0 Allergy status to penicillin; Z79.82 Long term (current) use of aspirin; Z79.899 Other long term (current) drug therapy
CPT/HCPCS: 36415; 71045; 80053; 83735; 83880; 84484; 85025; 85379; 85610; 93005; 93010; 96374; 99285-25; J2270

== ENCOUNTER 2024-10-03 06:18 | Emergency (ER) | payer OTHER ==
[~2024-10-03] VITALS: Ht 167.6 cm; Wt 103.4 kg
--- OUTSIDE RECORDS SUMMARY | ~2024-10-03 | XMS | Continuity of Care Document ---
Demographics + + + | Address | [address] | | | [place] [address] | + + + | Preferred Language | Unknown | + + + | Marital Status | Unknown | + + + | Episcopalian Affiliation | Unknown | + + + | Race | White | + + + | Ethnic Group | Not or | + + + Author + + + | Author | [facility] | + + + | Organization | [facility] | + + + | Address | [address] | | | [place] [address] | + + + | Phone | | + + + Care Team Providers + + + + | Care Diesel Tractor Engine Mechanic Name | Role | Phone | + + + + Unavailable | Unavailable | + + + + Allergies No information. Encounters No information. Functional Status No information. Immunizations No information. Medications No information. Problems + + + + | date | description | facility | + + + + | 2024-07-14 09:32:21 | Pain in right knee | [facility] | + + + + | 2024-07-15 00:49:02 | Pain in right knee | [facility] | + + + + | 2024-07-30 18:45:55 | Knee Pain | [facility] | + + + + | 2024-07-30 19:03:10 | Other tear of medial | [facility] [...]
[~2024-10-03 06:18] MED LIST changes: +HYDROCODON-ACE1 EA10
[2024-10-03] MEDS ORDERED: LIDOCAINE 2% (VISCOUS) HCL 15 ML UDC MT ONE (06:45)
[2024-10-03] MEDS ORDERED: LIDOCAINE HCL100 ML MT (07:26)
[2024-10-03 07:35] VITALS: BP 138/81
== END 2024-10-03 07:35 | disposition home or self-care (01) ==
LOC: ED 06:18
DX: J02.9 Acute pharyngitis, unspecified (principal); I10 Essential (primary) hypertension; K21.9 Gastro-esophageal reflux disease without esophagitis; Z86.73 Personal history of transient ischemic attack (TIA), and cerebral infarction without residual deficits; Z88.1 Allergy status to other antibiotic agents; Z88.5 Allergy status to narcotic agent; Z79.899 Other long term (current) drug therapy
CPT/HCPCS: 87651; 99283

== ENCOUNTER 2024-10-28 08:54 | Emergency (ER) | payer OTHER ==
[~2024-10-28] VITALS: Ht 167.6 cm; Wt 99.8 kg
--- OUTSIDE RECORDS SUMMARY | ~2024-10-28 | XMS | Continuity of Care Document ---
Demographics + + + | Address | [address] | | | [place] [address] | + + + | Preferred Language | Unknown | + + + | Marital Status | Unknown | + + + | Pentecostalism Affiliation | Unknown | + + + | Race | White | + + + | Ethnic Group | Not or | + + + Author + + + | Author | [facility] | + + + | Organization | [facility] | + + + | Address | [address] | | | [place] [address] | + + + | Phone | | + + + Care Team Providers + + + + | Care Punch Machine Hand Name | Role | Phone | + + + + Unavailable | Unavailable | + + + + Allergies No information. Encounters No information. Functional Status No information. Immunizations No information. Medications No information. Problems + + + + | date | description | facility | + + + + | 2024-07-30 [...]
[~2024-10-28 08:54] MED LIST changes: +LIDOCAINE HCL100 ML MT
[2024-10-28] MEDS ORDERED: LIDOCAINE & ANTACID 35 ML BTL PO ONE (09:15)
[2024-10-28] MEDS ORDERED: FAMOTIDINE 20 MG/ 2 ML VIAL IV ONE (09:15)
[2024-10-28 09:16] LABS: BASOPHILS 0.7 % (0.1-1.2); EOSINOPHILS 7.5 % (0.7-5.8); LYMPHOCYTES 37.7 % (19.3-51.7); MCH 29.5 PG (25.6-32.2); MCHC 34.0 g/dL (32.2-35.5); MCV 86.8 fL (79.4-94.8); MONOCYTES 6.4 % (4.7-12.5); NEUTROPHILS 47.5 % (34.0-71.1); RBC 4.78 M/uL (3.93-5.22)
[2024-10-28 09:38] LABS: ALT (SGPT) 38.0 U/L (14-59); AST (SGOT) 27.0 U/L (15-37); GLOMERULAR FILTRATION RATE,EST 69.0 mL/min (>60); PROTEIN, TOTAL 7.4 g/dL (6.4-8.2); UREA NITROGEN 12.0 mg/dL (7-18)
[2024-10-28 12:12] VITALS: BP 113/72
--- NOTE | 2024-10-28 23:26 | EKG ---
[facility] [address] [facility] [place] [address] Signed Normal sinus rhythm Normal ECG When compared with ECG of 08-SEP-2024 16:09, No significant change was found Confirmed by Jam Shea MD () on 10/28/2024 11:26:24 PM Electronically Signed By: JAM SHEA MD 10/28/24 2326 PATIENT NAME: IRVINGGEEGHULAMVICK FOOTE Electrocardiogram DATE OF : 82 PHYSICIAN: JAM SHEA MD REPORT #: [id number] REPORT IS CONFIDENTIAL AND NOT TO BE RELEASED WITHOUT AUTHORIZATION
== END 2024-10-28 12:13 | disposition home or self-care (01) ==
LOC: ED 08:54
PROVIDERS: Emergency Medicine
DX: K29.70 Gastritis, unspecified, without bleeding (principal); I10 Essential (primary) hypertension; K21.9 Gastro-esophageal reflux disease without esophagitis; F17.200 Nicotine dependence, unspecified, uncomplicated; Z88.8 Allergy status to other drugs, medicaments and biological substances; Z88.1 Allergy status to other antibiotic agents; Z79.82 Long term (current) use of aspirin
CPT/HCPCS: 36415; 71045; 76705; 80053; 83690; 83735; 84484; 85025; 93005; 93010; 96374; 99285-25

== ENCOUNTER 2024-11-17 02:03 | Emergency (ER) | payer OTHER ==
[~2024-11-17] VITALS: Ht 167.6 cm; Wt 103.0 kg
--- OUTSIDE RECORDS SUMMARY | ~2024-11-17 | XMS | Continuity of Care Document ---
Demographics + + + | Address | [address] | | | [place] [address] | + + + | Preferred Language | Unknown | + + + | Marital Status | Unknown | + + + | Protestant Affiliation | Unknown | + + + | Race | White | + + + | Ethnic Group | Not or | + + + Author + + + | Author | [facility] | + + + | Organization | [facility] | + + + | Address | [address] | | | [place] [address] | + + + | Phone | | + + + Care Team Providers + + + + | Care Center Manager Name | Role | Phone | + + + + Unavailable | Unavailable | + + + + Allergies No information. Encounters No information. Functional Status No information. Immunizations No information. Medications No information. Problems + + + + | date | description | facility | + + + + | 2024-08-21 10:44:04 | Unilateral primary | [facility] | | | osteoarthritis, right knee | | + + + + | 2024-08-21 10:46:25 | Pain in right knee | [facility] | + + + + | 2024-08-21 11:42:22 | Unilateral primary | [facility] | | | osteoarthritis, right knee | | + + + + | 2024-08-21 11:42:22 | Other tear of medial | [facility] | | | meniscus, current injury, | | | | right knee, initial | | | | encounter | | + + + + | 2024-08-21 11:42:22 | Other tear of lateral | [facility] | | | meniscus, current injury, | | | | right knee, initial | | | | encounter | | + + + + | 2024-08-25 00:43:45 | Pain in right knee | [facility] | + + + + Procedures No information. Results/Labs No information. Social History +--------+ + + | date | description | facility | +--------+ + + Vital Signs No information."
[2024-11-17] MEDS ORDERED: NITROGLYCERIN 0.4 MG SUBL SL PRN (02:15)
[2024-11-17] MEDS ORDERED: ASPIRIN 81 MG CHEW PO ONE (02:15)
[2024-11-17 02:26] LABS: BASOPHILS 0.7 % (0.1-1.2); EOSINOPHILS 6.7 % (0.7-5.8); LYMPHOCYTES 38.9 % (19.3-51.7); MCH 29.7 PG (25.6-32.2); MCHC 34.4 g/dL (32.2-35.5); MCV 86.4 fL (79.4-94.8); MONOCYTES 6.9 % (4.7-12.5); NEUTROPHILS 46.7 % (34.0-71.1); RBC 4.71 M/uL (3.93-5.22)
[2024-11-17] MEDS ORDERED: KETOROLAC TROMETHAMINE 30 MG/ML VIAL IV ONE (02:30)
[2024-11-17 02:43] LABS: ALT (SGPT) 40 U/L (14-59); AST (SGOT) 26 U/L (15-37); GLOMERULAR FILTRATION RATE,EST 72 mL/min (>60); PROTEIN, TOTAL 7.1 g/dL (6.4-8.2); UREA NITROGEN 12 mg/dL (7-18)
[2024-11-17 03:51] VITALS: BP 138/75
--- NOTE | 2024-11-19 21:28 | EKG ---
[facility] [address] [facility] [place] [address] Signed Normal sinus rhythm Low voltage QRS Borderline ECG When compared with ECG of 28-OCT-2024 08:52, No significant change was found Confirmed by Jam Shea MD () on 11/19/2024 9:28:36 PM Electronically Signed By: JAM SHEA MD 11/19/24 2128 PATIENT NAME: IRVINGGEEGHULAM Electrocardiogram DATE OF : 82 PHYSICIAN: JAM SHEA MD REPORT #: [id number] REPORT IS CONFIDENTIAL AND NOT TO BE RELEASED WITHOUT AUTHORIZATION
== END 2024-11-17 03:52 | disposition home or self-care (01) ==
LOC: ED 02:03
PROVIDERS: Internal Medicine
DX: R07.89 Other chest pain (principal); I25.10 Atherosclerotic heart disease of native coronary artery without angina pectoris; I25.2 Old myocardial infarction; K21.9 Gastro-esophageal reflux disease without esophagitis; F17.200 Nicotine dependence, unspecified, uncomplicated; Z88.5 Allergy status to narcotic agent; Z88.0 Allergy status to penicillin; Z79.82 Long term (current) use of aspirin; Z79.899 Other long term (current) drug therapy
CPT/HCPCS: 36415; 71045; 80053; 84484; 84703; 85025; 93005; 93010; 96374; 99284-25; J1885

== ENCOUNTER 2025-01-05 08:47 | Emergency (ER) | payer OTHER ==
[~2025-01-05] VITALS: Ht 167.6 cm; Wt 100.0 kg
[2025-01-05] MEDS ORDERED: ALBUTEROL/IPRATROPIUM 3 ML NEB ONE (08:55)
[2025-01-05] MEDS ORDERED: ALBUTEROL/IPRATROPIUM 3 ML NEB INH PRN (09:00)
[2025-01-05 09:03] LABS: BASOPHILS 0.7 % (0.1-1.2); EOSINOPHILS 7.4 % (0.7-5.8); LYMPHOCYTES 32.1 % (19.3-51.7); MCH 29.9 PG (25.6-32.2); MCHC 34.7 g/dL (32.2-35.5); MCV 86.3 fL (79.4-94.8); MONOCYTES 7.8 % (4.7-12.5); NEUTROPHILS 51.9 % (34.0-71.1); RBC 5.18 M/uL (3.93-5.22)
[2025-01-05 09:27] LABS: ALT (SGPT) 65.0 U/L (14-59); AST (SGOT) 39.0 U/L (15-37); GLOMERULAR FILTRATION RATE,EST 84.0 mL/min (>60); PROTEIN, TOTAL 8.0 g/dL (6.4-8.2); UREA NITROGEN 11.0 mg/dL (7-18)
[2025-01-05] MEDS ORDERED: ALBUTEROL/IPRATROPIUM 3 ML NEB INH ONE (09:30)
[2025-01-05 10:31] LABS: CORONAVIRUS COVID-19 AG NEGATIVE (NEGATIVE)
[2025-01-05] MEDS ORDERED: VENTOLIN HFA18 GM INH (10:44)
[2025-01-05] MEDS ORDERED: PREDNISONE20 MG PO (10:44)
[2025-01-05 10:53] VITALS: BP 135/85
--- NOTE | 2025-01-06 20:41 | EKG ---
[facility] [address] [facility] [place], [place] [address] Signed Normal sinus rhythm Normal ECG When compared with ECG of 17-NOV-2024 02:10, No significant change was found Confirmed by JULIANN RANDALL MD ([id number]) on 01/06/2025 8:41:36 PM Electronically Signed By: JULIANN RANDALL 01/06/252040 PATIENT NAME: GHULAM RIVERA Electrocardiogram DATE OF : [birth year] PHYSICIAN: JULIANN RANDALL REPORT #: [id number] REPORT IS CONFIDENTIAL AND NOT TO BE RELEASED WITHOUT AUTHORIZATION
== END 2025-01-05 10:53 | disposition home or self-care (01) ==
LOC: ED 08:47
PROVIDERS: Emergency Medicine
DX: R06.02 Shortness of breath (principal); J45.909 Unspecified asthma, uncomplicated; I25.2 Old myocardial infarction; I10 Essential (primary) hypertension; K21.9 Gastro-esophageal reflux disease without esophagitis; F17.200 Nicotine dependence, unspecified, uncomplicated; Z95.5 Presence of coronary angioplasty implant and graft; Z86.73 Personal history of transient ischemic attack (TIA), and cerebral infarction without residual deficits; Z88.5 Allergy status to narcotic agent; Z88.0 Allergy status to penicillin; Z79.82 Long term (current) use of aspirin; Z79.899 Other long term (current) drug therapy
CPT/HCPCS: 36415; 71045; 80053; 83735; 84484; 85025; 93005; 93010; 94640; 96374; 99285-25; J2919

== ENCOUNTER 2025-01-07 15:14 | Emergency (ER) | payer OTHER ==
[~2025-01-07] VITALS: Ht 167.6 cm; Wt 100.0 kg
[~2025-01-07 15:14] MED LIST changes: +VENTOLIN HFA18 GM INH
[2025-01-07] MEDS ORDERED: CYCLOBENZAPRINE HCL 10 MG HOME.PACK PO ONE (22:00)
[2025-01-07 22:03] VITALS: BP 126/62
== END 2025-01-07 22:04 | disposition home or self-care (01) ==
LOC: ED 15:14
DX: S80.11XA Contusion of right lower leg, initial encounter (principal); I10 Essential (primary) hypertension; I25.2 Old myocardial infarction; K21.9 Gastro-esophageal reflux disease without esophagitis; F17.200 Nicotine dependence, unspecified, uncomplicated; Z86.73 Personal history of transient ischemic attack (TIA), and cerebral infarction without residual deficits; Z88.5 Allergy status to narcotic agent; Z88.0 Allergy status to penicillin; Z79.82 Long term (current) use of aspirin; Z79.899 Other long term (current) drug therapy; X58.XXXA Exposure to other specified factors, initial encounter
CPT/HCPCS: 93971; 99283-25

== ENCOUNTER 2025-02-01 00:17 | Emergency (ER) | payer OTHER ==
[~2025-02-01] VITALS: Ht 167.6 cm; Wt 101.2 kg
--- NOTE | ~2025-02-01 | EKG ---
[facility] [address] [facility] [place], [place] [address] Draft EKG completed, results pending confirmation PATIENT NAME: GHULAM RIVERA Electrocardiogram DATE OF : 82 PHYSICIAN: PRELIMINARY REPORT #: [id number] REPORT IS CONFIDENTIAL AND NOT TO BE RELEASED WITHOUT AUTHORIZATION
[2025-02-01] MEDS ORDERED: ALBUTEROL/IPRATROPIUM 3 ML NEB INH PRN (00:30)
[2025-02-01] MEDS ORDERED: ALBUTEROL SULFATE 0.5% 2.5 MG/0.5 ML VIAL INH ONE (00:30)
[2025-02-01 00:46] LABS: BASOPHILS 0.4 % (0.1-1.2); EOSINOPHILS 8.5 % (0.7-5.8); LYMPHOCYTES 45.3 % (19.3-51.7); MCH 28.7 PG (25.6-32.2); MCHC 33.3 g/dL (32.2-35.5); MCV 86.4 fL (79.4-94.8); MONOCYTES 8.0 % (4.7-12.5); NEUTROPHILS 37.7 % (34.0-71.1); RBC 5.01 M/uL (3.93-5.22)
[2025-02-01 01:15] LABS: ALT (SGPT) 50 U/L (14-59); AST (SGOT) 30 U/L (15-37); GLOMERULAR FILTRATION RATE,EST 82 mL/min (>60); PROTEIN, TOTAL 7.3 g/dL (6.4-8.2); UREA NITROGEN 12 mg/dL (7-18)
[2025-02-01] MEDS ORDERED: methylPREDNISolone 4 MG HOME.PACK PO ONE (02:00)
[2025-02-01 02:15] VITALS: BP 144/71
== END 2025-02-01 02:17 | disposition home or self-care (01) ==
LOC: ED 00:17
PROVIDERS: Emergency Medicine
DX: J45.901 Unspecified asthma with (acute) exacerbation (principal); I10 Essential (primary) hypertension; K21.9 Gastro-esophageal reflux disease without esophagitis; F17.200 Nicotine dependence, unspecified, uncomplicated; Z88.1 Allergy status to other antibiotic agents; Z79.899 Other long term (current) drug therapy
CPT/HCPCS: 36415; 71045; 80053; 83735; 83880; 84484; 85025; 93005; 93010; 94640; 94644; 96374; 99285-25; J2919

== ENCOUNTER 2025-02-20 08:47 | Emergency (ER) | payer OTHER ==
[~2025-02-20] VITALS: Ht 167.6 cm; Wt 100.5 kg
[2025-02-20] MEDS ORDERED: SODIUM CHLORIDE 0.9% 1,000 ML IV ONE (09:15)
[2025-02-20 09:18] LABS: BASOPHILS 0.5 % (0.1-1.2); EOSINOPHILS 10.0 % (0.7-5.8); LYMPHOCYTES 34.6 % (19.3-51.7); MCH 29.4 PG (25.6-32.2); MCHC 33.8 g/dL (32.2-35.5); MCV 87.1 fL (79.4-94.8); MONOCYTES 7.8 % (4.7-12.5); NEUTROPHILS 46.9 % (34.0-71.1); RBC 4.96 M/uL (3.93-5.22)
[2025-02-20 09:34] LABS: ALT (SGPT) 64.0 U/L (14-59); AST (SGOT) 35.0 U/L (15-37); GLOMERULAR FILTRATION RATE,EST 92.0 mL/min (>60); PROTEIN, TOTAL 7.3 g/dL (6.4-8.2); UREA NITROGEN 12.0 mg/dL (7-18)
[2025-02-20 10:24] LABS: BLOOD/HGB, URINE TRACE-I (Negative); KETONE, URINE NEGATIVE (Negative); LEUK ESTERASE, URINE SMALL (negative); NITRITE, URINE NEGATIVE (negative)
[2025-02-20 10:31] LABS: EPITHELIAL CELLS, URINE SQUAMOUS 2+ /lpf (0-1+)
[2025-02-20 10:32] LABS: BACTERIA, URINE NONE SEEN /hpf (negative); CASTS, URINE NONE SEEN \\lpf; CRYSTALS, URINE NONE SEEN (0-1+); REFLEX CULTURE, URINE No (No)
[2025-02-20 12:12] VITALS: BP 109/76
== END 2025-02-20 12:05 | disposition home or self-care (01) ==
LOC: ED 08:47
PROVIDERS: Emergency Medicine
DX: R10.31 Right lower quadrant pain (principal); K76.0 Fatty (change of) liver, not elsewhere classified; F17.200 Nicotine dependence, unspecified, uncomplicated; K21.9 Gastro-esophageal reflux disease without esophagitis; Z88.8 Allergy status to other drugs, medicaments and biological substances
CPT/HCPCS: 36415; 74177; 80053; 81001; 83690; 84703; 85025; 99284-25; J7030; Q9967

== ENCOUNTER 2025-02-23 17:02 | Emergency (ER) | payer OTHER ==
[~2025-02-23] VITALS: Ht 167.6 cm; Wt 103.0 kg
[2025-02-23] MEDS ORDERED: ASPIRIN 81 MG CHEW PO ONE (17:15)
[2025-02-23 17:16] LABS: BASOPHILS 0.7 % (0.1-1.2); EOSINOPHILS 8.3 % (0.7-5.8); LYMPHOCYTES 37.0 % (19.3-51.7); MCH 29.2 PG (25.6-32.2); MCHC 33.3 g/dL (32.2-35.5); MCV 87.8 fL (79.4-94.8); MONOCYTES 7.8 % (4.7-12.5); NEUTROPHILS 46.1 % (34.0-71.1); RBC 5.00 M/uL (3.93-5.22)
[2025-02-23] MEDS ORDERED: CYCLOBENZAPRINE10 MG PO (17:20)
[2025-02-23 17:34] LABS: ALT (SGPT) 78 U/L (14-59); AST (SGOT) 44 U/L (15-37); GLOMERULAR FILTRATION RATE,EST 93 mL/min (>60); PROTEIN, TOTAL 7.5 g/dL (6.4-8.2); UREA NITROGEN 7 mg/dL (7-18)
[2025-02-23] MEDS ORDERED: ONDANSETRON 4 MG TAB ODT SL ONE (19:15)
[2025-02-23] MEDS ORDERED: LIDOCAINE & ANTACID 35 ML BTL PO ONE (19:15)
[2025-02-23 19:34] VITALS: BP 124/72
--- NOTE | 2025-02-24 18:58 | EKG ---
[facility] [address] [facility] [place] [address] Signed Normal sinus rhythm Normal ECG When compared with ECG of 01-FEB-2025 00:45, Vent. rate has decreased BY 51 BPM Borderline criteria for Inferior infarct are no longer present Confirmed by Jam Shea MD () on 02/24/2025 6:58:06 PM Electronically Signed By: JAM SHEA MD 02/24/25 1858 PATIENT NAME: IRVINGGHULAM FLYNN Electrocardiogram DATE OF : 82 PHYSICIAN: JAM SHEA MD REPORT #: [id number] REPORT IS CONFIDENTIAL AND NOT TO BE RELEASED WITHOUT AUTHORIZATION
== END 2025-02-23 19:35 | disposition home or self-care (01) ==
LOC: ED 17:02
PROVIDERS: Emergency Medicine
DX: R07.89 Other chest pain (principal); I10 Essential (primary) hypertension; K21.9 Gastro-esophageal reflux disease without esophagitis; Z79.82 Long term (current) use of aspirin; Z79.899 Other long term (current) drug therapy; Z88.0 Allergy status to penicillin; Z88.5 Allergy status to narcotic agent; F17.200 Nicotine dependence, unspecified, uncomplicated; Z86.73 Personal history of transient ischemic attack (TIA), and cerebral infarction without residual deficits
CPT/HCPCS: 36415; 71045; 80053; 83735; 84484; 85025; 93005; 93010; 99285-25; A9270